=== PATIENT | female | born 1985 | race Caucasian/White ===

== ENCOUNTER 2018-04-21 11:46 | Emergency (ER) | payer BC, SELFPAY ==
[2018-04-21] MEDS ORDERED: predniSONE 20 MG TAB ONE (12:42)
[2018-04-21] MEDS ORDERED: Cephalexin 500 MG CAP ONE (12:42)
== END 2018-04-21 12:52 | disposition home or self-care (01) ==
LOC: MADERS 11:46
DX: L30.9 Dermatitis, unspecified (principal); F41.9 Anxiety disorder, unspecified; F32.9 Major depressive disorder, single episode, unspecified; F17.210 Nicotine dependence, cigarettes, uncomplicated; Z79.899 Other long term (current) drug therapy
CPT/HCPCS: 99282; J7506

== ENCOUNTER 2018-05-21 20:20 | Emergency (ER) | payer BC, SELFPAY ==
--- NOTE | 2018-05-21 20:52 | RAD ---
TWO VIEW CHEST: History: Cough, fever. FINDINGS: Lungs are clear. Heart and mediastinum unremarkable. IMPRESSION: No acute process. POS: [facility]
[2018-05-21] MEDS ORDERED: Ventolin HFA Inhaler 60 PUFF INHALER ONE (21:11)
[2018-05-21] MEDS ORDERED: Dexamethasone 4 MG TAB ONE (21:11)
[2018-05-21] MEDS ORDERED: HYDROcodone/Acetaminophen 5/325 mg Tablet ONE (21:11)
[2018-05-21] MEDS ORDERED: Ibuprofen 800 MG TAB ONE (21:11)
[2018-05-21] MEDS ORDERED: Benzonatate 100 MG CAP ONE (21:11)
== END 2018-05-21 21:25 | disposition home or self-care (01) ==
LOC: MADERS 20:20
DX: J40 Bronchitis, not specified as acute or chronic (principal); B34.9 Viral infection, unspecified; F41.9 Anxiety disorder, unspecified; F32.9 Major depressive disorder, single episode, unspecified; F17.210 Nicotine dependence, cigarettes, uncomplicated; Z79.899 Other long term (current) drug therapy
CPT/HCPCS: 71046; 87804; J8540

== ENCOUNTER 2018-06-02 17:40 | Emergency (ER) | payer SELFPAY ==
[2018-06-02] MEDS ORDERED: Acetaminophen 500 MG TAB ONE ×2 (18:27→18:46)
[2018-06-02] MEDS ORDERED: predniSONE 20 MG TAB ONE (18:27)
[2018-06-02] MEDS ORDERED: Ibuprofen 800 MG TAB ONE (18:27)
--- NOTE | 2018-06-02 18:37 | RAD ---
TWO VIEWS OF THE CHEST: 06/02/18 COMPARISON: 05/21/18 HISTORY: Cough. FINDINGS: Two views of the chest show normal sized cardiomediastinal silhouette. There is no evidence of consol idation, mass, or pleural effusion. The bones are unremarkable. IMPRESSION: No evidence of acute cardiopulmonary disease. POS: [facility]
[2018-06-02] MEDS ORDERED: Sodium Chloride 0.9% 1,000 ML BAG ONE (19:20)
[2018-06-02] MEDS ORDERED: Sodium Chloride 0.9% 100 ML BAG ONE (19:20)
[2018-06-02] MEDS ORDERED: Sodium Chloride 0.9% 1,000 ML ONE (19:23)
[2018-06-02] MEDS ORDERED: cefTRIAXone\\ROCEPHIN 1 GM VIAL ONE (19:24)
[2018-06-02] MEDS ORDERED: Sodium Chloride 0.9% 100 ML ONE (19:24)
[2018-06-02 19:27] LABS: #Basophils 0.2 thou/uL (0.0-0.2); #Eosinphils 0.4 thou/uL (0.0-0.7); #Lymphocytes 3.8 thou/uL (1.20-3.40); #Monocytes 1.3 thou/uL (0.11-0.59); #Neutrophils 13.1 thou/uL (1.40-6.50); %Basophils 0.9 % (0.0-1.0); %Lymphocytes 20.3 % (21.0-51.0); %Monocytes 6.9 % (0.0-10.0); %Neutrophils 69.9 % (42.0-75.0); Hemoglobin 13.3 g/dL (12.0-16.0); Mean Corpuscular HGB CONC 34.2 g/dL (32.0-36.0); Mean Corpuscular Hemoglobin 30.9 pg (27.0-31.0); Mean Corpuscular Volume 90.5 fL (78.0-98.0); Mean Platelet Volume 6.4 fL (7.4-10.4); Platelet Count 406 thou/uL (130-400); RBC Distribution Width 12.8 % (11.5-14.5); Red Blood Cell (RBC) Count 4.31 mill/uL (4.20-5.40); White Blood Cell (WBC) Count 18.7 thou/uL (4.8-10.8)
[2018-06-02 19:41] LABS: Anion Gap 14 mmol/L (10-20); BUN (Urea Nitrogen) 8 mg/dL (7.0-18.7); Calc. Creatinine Clearance 0 mL/min (70-130); Carbon Dioxide 22 mmol/L (22-29); Chloride 105 mmol/L (98-107); Estimated GFR-MDRD 88; Glucose 97 mg/dL (70-105); Sodium 137 mmol/L (136-145)
== END 2018-06-02 21:09 | disposition short-term general hospital (02) ==
LOC: MADERS 17:40
DX: J45.909 Unspecified asthma, uncomplicated (principal); F41.9 Anxiety disorder, unspecified; F32.9 Major depressive disorder, single episode, unspecified; F17.210 Nicotine dependence, cigarettes, uncomplicated
CPT/HCPCS: 71046; 80048; 83605; 85025; 94640; 96365; J0696; J7050; J7506; J7620

== ENCOUNTER 2023-01-07 01:15 | Emergency (ER) | payer BC, SELFPAY ==
[2023-01-07] MEDS ORDERED: Ketorolac Tromethamine 60 MG/2 ML VIAL ONE (02:40)
== END 2023-01-07 03:05 | disposition home or self-care (01) ==
LOC: MADERS 01:15
DX: S90.111A Contusion of right great toe without damage to nail, initial encounter (principal); F17.210 Nicotine dependence, cigarettes, uncomplicated
CPT/HCPCS: 96372; J1885

== ENCOUNTER 2023-08-16 20:52 | Emergency (ER) | payer BC | END 2023-08-16 22:56 | disposition home or self-care (01) | LOC: MADERS 20:52 | DX: J06.9 Acute upper respiratory infection, unspecified (principal); R50.9 Fever, unspecified; F17.210 Nicotine dependence, cigarettes, uncomplicated | CPT/HCPCS: 71046; 87081; 87430 ==

== ENCOUNTER 2024-02-06 16:32 | Emergency (ER) | payer BC ==
[2024-02-06] MEDS ORDERED: Ketorolac Tromethamine 60 MG/2 ML VIAL ONE (17:02)
[2024-02-06] MEDS ORDERED: Bacitracin 1 PK ONE (17:03)
== END 2024-02-06 17:22 | disposition home or self-care (01) ==
LOC: MADERS 16:32
DX: S60.022A Contusion of left index finger without damage to nail, initial encounter (principal); F17.210 Nicotine dependence, cigarettes, uncomplicated; W25.XXXA Contact with sharp glass, initial encounter
CPT/HCPCS: 96372; J1885

== ENCOUNTER 2024-03-22 01:07 | Emergency (ER) | payer BC ==
[2024-03-22 01:49] LABS: Bilirubin Small (Negative); Blood, Urine Large (Negative); Glucose, Urine (Dipstick) 100 mg/dL (Negative); Ketone, Urine Trace mg/dL (Negative); Leukocyte Negative (Negative); Nitrite Negative (Negative); Pregnancy Test - Urine (BHCG) Negative (Negative); Pregu Control Background? CLEAR/WHITE (CLR/WHITE); Pregu Control Bar Appear? YES (CONTROL BAR); Protein, Urine (Dipstick) 100 mg/dL (Neg-Trace); Specific Gravity 1.026 (1.002-1.036); pH, Urine 5.5 (5.0-9.0)
[2024-03-22 01:53] LABS: Clarity Turbid (Clear); Specific Gravity, Urine 1.026 (1.002-1.036)
[2024-03-22 01:54] LABS: Bacteria/HPF 3+ HPF (None Seen); CAUTI Indications for Culture Pelvic or flank pain; RBC/HPF Greater than 50 HPF (0-3); WBC/HPF 0-3 HPF (0-3); Yeast-Budding 2+ HPF (None Seen)
[2024-03-22 01:55] LABS: Urine Culture Reflex No No
[2024-03-22] MEDS ORDERED: Ketorolac Tromethamine 30 MG (1 mL) VIAL ONE (02:37)
[2024-03-22] MEDS ORDERED: Ondansetron PF 4 MG/2 ML Vial ONE (02:37)
[2024-03-22] MEDS ORDERED: Lactated Ringer's 1,000 ML ONE (02:37)
[2024-03-22 02:40] LABS: Band 1 % (5-11); Eosinophils 1 % (0-10); Hematocrit 42.8 % (36.0-47.0); Hemoglobin 13.8 g/dL (12.0-16.0); Lymphocytes 10 % (21-51); MDiff Complete? YES; Mean Corpuscular HGB CONC 32.2 g/dL (32.0-36.0); Mean Corpuscular Hemoglobin 28.9 pg (27.0-31.0); Mean Corpuscular Volume 89.7 fl (78.0-98.0); Mean Platelet Volume 7.5 fL (7.4-10.4); Monocytes 6 % (0-10); Neutrophil 82 % (42-75); Platelet Count 457 10x3/uL (130-400); RBC Distribution Width 12.6 % (11.5-14.5); Red Blood Cell (RBC) Count 4.77 mill/uL (4.20-5.40); White Blood Cell (WBC) Count 18.5 10x3/uL (4.8-10.8)
[2024-03-22 02:50] LABS: INR-International Normal Ratio 0.9; Prothrombin Time 12.5 sec (12.0-14.7)
[2024-03-22 03:00] LABS: PTT 22.2 sec (22.9-36.1)
[2024-03-22 03:06] LABS: ALT (SGPT) 20 U/L (8-55); AST (SGOT) 12 U/L (5-34); Albumin 4.1 g/dL (3.5-5.0); Alkaline Phosphatase 111 U/L (40-110); Anion Gap 17 mmol/L (10-20); BUN (Urea Nitrogen) 12 mg/dL (7.0-18.7); Bilirubin, Total 0.4 mg/dL (0.2-1.2); Calc. Creatinine Clearance 0 mL/min (70-130); Calcium 9.2 mg/dL (7.8-10.44); Carbon Dioxide 17 mmol/L (22-29); Chloride 107 mmol/L (98-107); Estimated GFR 58; Globulin 3.2 g/dL (2.4-3.5); Glucose 116 mg/dL (70-105); Lipase 72 U/L (8-78); Potassium 4.3 mmol/L (3.5-5.1); Protein, Total 7.3 g/dL (6.0-8.3); Sodium 137 mmol/L (136-145)
[2024-03-22] MEDS ORDERED: Lidocaine 2 gm/D5W 500 ml 500 ML ONE (03:13)
== END 2024-03-22 04:01 | disposition home or self-care (01) ==
LOC: MADERS 01:07
DX: N20.1 Calculus of ureter (principal); B37.49 Other urogenital candidiasis; F17.210 Nicotine dependence, cigarettes, uncomplicated
CPT/HCPCS: 80053; 81001; 81025; 83690; 85025; 85610; 85730; 87086; 94760; 96374; 96375; J1885; J2001; J2405; J7120

== ENCOUNTER 2024-08-12 10:04 | Emergency (ER) | payer BC ==
[2024-08-12] MEDS ORDERED: Boostrix 0.5 ML (Tdap) VIAL (>/=7 yrs of age) ONE (10:48)
[2024-08-12] MEDS ORDERED: Amoxicillin/Potassium Clav 875 MG TAB ONE (11:32)
[2024-08-12] MEDS ORDERED: Sulfameth/Trimethoprim DS 800-160mg TAB ONE (11:32)
[2024-08-12] MEDS ORDERED: Ondansetron ODT 4 MG TAB ONE (12:13)
== END 2024-08-12 12:20 | disposition home or self-care (01) ==
LOC: MADERS 10:04
DX: L03.116 Cellulitis of left lower limb (principal); F17.210 Nicotine dependence, cigarettes, uncomplicated; Z23 Encounter for immunization
CPT/HCPCS: 90471; 90715; Q0162

== ENCOUNTER 2025-04-23 14:39 | Emergency (ER) | payer MEDICAID, SELFPAY ==
[2025-04-23] MEDS ORDERED: Potassium Bicarbonate/Cit Ac 20 MEQ TAB ONE (14:54)
[2025-04-23 15:03] LABS: Glucose, Urine (Dipstick) Negative (Negative); Leukocyte Small (Negative); Protein, Urine (Dipstick) Trace mg/dL (Neg-Trace); Specific Gravity, Urine Greater/Equal 1.030 (1.005-1.030)
[2025-04-23 15:09] LABS: Bacteria/HPF 3+ HPF (None Seen); CAUTI Indications for Culture Dysuria,urgency,freq; Trichomonas/HPF 1+ HPF (None Seen)
[2025-04-23 15:13] LABS: Pregnancy Test - Urine (BHCG) Negative (Negative); Pregu Control Background? CLEAR/WHITE (CLR/WHITE); Pregu Control Bar Appear? YES (CONTROL BAR)
[2025-04-23 15:14] LABS: Urine Culture Reflex Yes Yes
[2025-04-23] MEDS ORDERED: cefTRIAXone (ROCEPHIN) 500 MG VIAL ONE (15:27)
[2025-04-24 09:55] LABS: Chlamydia by PCR, Vaginal Swab Not Detected (NotDetected); GC by PCR, Vaginal Swab Not Detected (NotDetected)
== END 2025-04-23 16:15 | disposition home or self-care (01) ==
LOC: MADERS 14:39
DX: A59.01 Trichomonal vulvovaginitis (principal); R82.71 Bacteriuria; F17.210 Nicotine dependence, cigarettes, uncomplicated; Z75.3 Unavailability and inaccessibility of health-care facilities
CPT/HCPCS: 81001; 81025; 87077; 87086; 87480; 87491; 87510; 87591; 87660; 96372; 99283; J0696